=== PATIENT | female | born 1950 | race Caucasian/White ===

== ENCOUNTER 2020-12-10 04:09 | Emergency (ER) | payer MEDICARE ==
[2020-12-10 09:32] LABS: BASOPHIL 0.6 % (0-2); EOSINOPHIL 1.8 % (0-7); HCT 35.9 % (37.0-47.0); HGB 11.6 g/dl (12.5-16.0); MCH 28.1 pg (25.0-31.0); MCHC 32.3 g/dL (32.0-36.0); MCV 86.9 fL (78.0-100.0); MONOCYTE 9.9 % (0-12); MPV 10.6 fL (6.0-9.5); NEUTROPHIL 64.3 % (41-80); NRBC 0; PLT 131 K/uL (150-400); RBC 4.13 M/uL (4.20-5.40); RDW 14.3 % (11.5-14.0); WBC 5.1 K/uL (4.0-10.5)
[2020-12-10 09:45] LABS: CREATININE 1.21 mg/dL (0.51-0.95); POTASSIUM 3.6 mmol/L (3.5-5.1)
== END 2020-12-10 11:08 | disposition home or self-care (01) ==
LOC: FER 04:09
PROVIDERS: Emergency Medicine
DX: K59.00 Constipation, unspecified (principal); E11.22 Type 2 diabetes mellitus with diabetic chronic kidney disease; I12.9 Hypertensive chronic kidney disease with stage 1 through stage 4 chronic kidney disease, or unspecified chronic kidney disease; N18.30 Chronic kidney disease, stage 3 unspecified; Z88.0 Allergy status to penicillin
CPT/HCPCS: 36415; 74018; 80048; 85025